=== PATIENT | female | born 1945 | race Caucasian/White ===

== ENCOUNTER 2018-03-12 10:18 | Day surgery (SDC) | payer OTHER ==
[2018-03-12] MEDS ORDERED: NS 1,000 ML IV ONE (10:28)
--- NOTE | 2018-03-12 11:53 | PDANEPAE ---
ANE Past Medical History - Cardiovascular History Hx Hypertension: No Hx Arrhythmias: No Hx Chest Pain: No Hx Coronary Artery / Peripheral Vascular Disease: No Hx CHF / Valvular Disease: No Hx Palpitations: No - Pulmonary History Hx COPD: No Hx Asthma/Reactive Airway Disease: No Hx Recent Upper Respiratory Infection: No Hx Oxygen in Use at Home: No Hx Sleep Apnea: No Sleep Apnea Screening Result - Last Documented: Negative Pulmonary History Comment: MILD COPD WHEN QUIT SMOKING ABOUT 20 YEARS AGO - Neurologic History Hx Cerebrovascular Accident: No Hx Seizures: No Hx Dementia: No - Endocrine History Hx Diabetes: No - Renal History Hx Renal Disorders: No - Liver History Hx Hepatic Disorders: No - Neurological & Psychiatric Hx Hx Neurological and Psychiatric Disorders: No - Cancer History Hx Cancer: No - Congenital Disorder History Hx Congenital Disorders: No - GI History Hx Gastrointestinal Disorders: No Gastrointestinal History Comment: CONSTIPATION - Other Health History Other Health History: NEG - Chronic Pain History Chronic Pain: Yes (NECK & SHOULDER) - Surgical History Prior Surgeries: colonoscopies. ANE Review of Systems Review of Systems: - Exercise capacity METS (RN): 5 METS ANE Patient History - Allergies Allergies/Adverse Reactions: erythromycin base Allergy (Verified 03/12/18 11:05) levofloxacin [From Levaquin] Allergy (Verified 03/12/18 11:06) - Home Medications Home Medications: NK [No Known Home Meds] 03/04/18 [Last Taken Unknown] - NPO status NPO Since - Liquids (Date): 03/12/18 NPO Since - Liquids (Time): 03:00 NPO Since - Solids (Date): 03/11/18 NPO Since - Solids (Time): 08:00 - Smoking Hx Smoking Status: Former smoker - Family Anes Hx Family Hx Anesthesia Complications: NEG ANE Labs/Vital Signs - Vital Signs Blood Pressure: 134/76 Heart Rate: 68 Respiratory Rate: 18 O2 Sat (%): 96 Height: 162.56 cm Weight: 61.235 kg
--- NOTE | 2018-03-12 12:02 | PDPROPOC ---
Sedation Plan of Care Sedation Plan of Care: vital signs stable, mental status noted, patient educated of risks, benefits, alternatives, patient can tolerate sedation ASA Classification: ASA 1 Planned drugs: fentanyl, midazolam Mallampati Score: Class 1 Mallampati Reference Image: Patient passed 3-3-2 rule?: Yes
--- NOTE | 2018-03-12 12:04 | PDGENHP ---
History & Physical Chief Complaint: phx polyps, fhxx colon cancer History of Present Illness: phx polyp piecemeal removal january 2017 Pertinent Past, Social, Family History: fhx - mom colon cancer age 70's. shx - no toabcco, alcohol 1 ounce daily intermittantly. no PMH Relevant Physical Exam: A+Ox3. CTA. S1S2, RRR. +BS, soft , nt Cardiorespiratory Assessment: class 1
[2018-03-12] MEDS ORDERED: MIDAZOLAM 2 MG/2 ML VIAL ONE (12:09)
[2018-03-12] MEDS ORDERED: fentaNYL 100 MCG/2 ML INJ ONE (12:09)
--- NOTE | 2018-03-12 12:48 | GIREPORT ---
[facility] Surgical Services - Endoscopy Department Patient Name: Rachele Lopez Procedure Date: 03/12/2018 11:33 AM Patient Type: Outpatient Attending MD/ ER Physician: Indira Najera Procedure: Colonoscopy Indications: Surveillance: Piecemeal removal of large sessile adenoma last colonosco py (< 3 yrs) Providers: Gallito Griffith MD Referring MD: Renate Bennett Medicines: Fentanyl 100 micrograms IV, Midazolam 4 mg IV Complications: No immediate complications. Estimated blood loss: Minimal. Description of Procedure: After obtaining informed consent, the scope was passed under direct vis ion. Throughout the procedure, the patient's blood pressure, pulse, and oxyg en saturations were monitored continuously. The Colonoscope with irrigatio n channel was introduced through the anus and advanced to the terminal il eum, with identification of the appendiceal orifice and IC valve. The colono scopy was somewhat difficult due to significant looping. Successful completio n of the procedure was aided by increasing the dose of sedation medication a nd straightening and shortening the scope to obtain bowel loop reduction. The patient tolerated the procedure well. The quality of the bowel preparat ion was good. Findings: The digital rectal exam was normal. The terminal ileum appeared normal. A post polypectomy scar was found in the proximal transverse colon. The scar tissue was healthy in appearance. There was no evidence of the previous polyp. Biopsies were taken with a cold forceps for histology. Estimated blood loss was minimal. A 4 mm polyp was found in the sigmoid colon. The polyp was sessile. The polyp was removed with a cold snare. Resection and retrieval were compl ete. A few medium-mouthed diverticula were found in the sigmoid colon and descending colon. The exam was otherwise without abnormality. Estimated Blood Loss: Estimated blood loss was minimal. Post Op Diagnosis: - The examined portion of the ileum was normal. - Post-polypectomy scar in the proximal transverse colon. Biopsied. - One 4 mm polyp in the sigmoid colon, removed with a cold snare. Resec berna and retrieved. - Diverticulosis in the sigmoid colon and in the descending colon. - The examination was otherwise normal. Recommendation: - Await pathology results. - My office will call with the pathology result with 5-7 days. If you h ave not heard from my office by 12-14, do not assume the pathology is estefany l, please call [phone] to get the pathology results. - Repeat colonoscopy in 3 years for surveillance based on pathology res ults. If no residual polyp tissue at previous polypectomy site, then three ye ars is correct. - High fiber diet indefinitely. - 30-35 grams of dietary fiber per day. Can use supplemental fiber. - A high fiber diet may decrease risk of complications from diverticulo sis. There is no need to avoid seeds or nuts. - Patient has a contact number available for emergencies. The signs and symptoms of potential delayed complications were discussed with the pat ient. Return to normal activities tomorrow. Written discharge instructions we re provided to the patient. - Patient medication history reviewed. Patient is appropriately not judi ing any medications. - Discharge patient to home (ambulatory). - Return to primary care physician as previously scheduled. - Thank you for allowing me to help in your patient's care. Do not hesi mahan to call with any questions. Attending Participation: I personally performed the entire procedure. Nacho Conti M.D Gallito Griffith MD 03/12/2018 12:47:43 PM This report has been signed electronicallyMathew MD Nacho Number of Addenda: 0 Note Initiated On: 03/12/2018 11:33 AM Total Procedure Duration Time 0 hours 19 minutes 0 seconds [email or web address]
[2018-03-12 13:35] VITALS: BP 108/55
== END 2018-03-12 13:30 | disposition home or self-care (01) ==
LOC: FSGY 10:18
PROVIDERS: ATTEND Internal Medicine Gastroenterology
PROC: 0DBL8ZX Excision of Transverse Colon, Via Natural or Artificial Opening Endoscopic, Diagnostic (ICD-10-PCS; principal; 2018-03-12 12:00)
PROC: 0DBN8ZX Excision of Sigmoid Colon, Via Natural or Artificial Opening Endoscopic, Diagnostic (ICD-10-PCS; principal; 2018-03-12 12:00)
DX: Z12.11 Encounter for screening for malignant neoplasm of colon (principal); D12.5 Benign neoplasm of sigmoid colon; K57.30 Diverticulosis of large intestine without perforation or abscess without bleeding; Z86.010 Personal history of colon polyps; Z87.891 Personal history of nicotine dependence; Z80.0 Family history of malignant neoplasm of digestive organs
CPT/HCPCS: J2250; J3010